=== PATIENT | male | born 1985 | race Two or more races ===

== ENCOUNTER 2019-01-01 14:04 | Emergency (ER) | payer SELFPAY ==
[~2019-01-01] VITALS: Ht 165.1 cm; Wt 81.6 kg
[2019-01-01 14:04] VITALS: BP 151/100
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
== END 2019-01-01 14:59 | disposition home or self-care (01) ==
LOC: ER 14:06
DX: S00.33XA Contusion of nose, initial encounter (principal); S09.8XXA Other specified injuries of head, initial encounter; V49.59XA Passenger injured in collision with other motor vehicles in traffic accident, initial encounter; Y93.89 Activity, other specified; Y92.410 Unspecified street and highway as the place of occurrence of the external cause; Y99.8 Other external cause status
CPT/HCPCS: Z7502

== ENCOUNTER 2023-01-05 00:08 | Inpatient (IN) | payer MEDICAID ==
[2023-01-04 20:00] VITALS: BP 147/102
[~2023-01-05] VITALS: Ht 157.5 cm; Wt 89.4 kg
[2023-01-05 02:04] LABS: BASOPHILS % (AUTO) 0.6 % (0.0-2.0); EOSINOPHILS % (AUTO) 1.9 % (0.0-6.0); HEMATOCRIT 41 % (39-51); HEMOGLOBIN 12.7 g/dL (13.5-17.5); LYMPHOCYTES # (AUTO) 1.9 K/uL (0.8-4.8); LYMPHOCYTES % (AUTO) 22.2 % (20.0-44.0); MEAN CORPUSCULAR HGB CONC 31 g/dl (31.0-36.0); MEAN CORPUSCULAR VOLUME 89 fL (80-96); MONOCYTES % (AUTO) 11.8 % (2.0-12.0); NEUTROPHILS # (AUTO) 5.4 K/uL (1.8-8.9); NEUTROPHILS % (AUTO) 63.5 % (43.0-81.0); PLATELET COUNT (AUTO) 306 K/uL (150-450); RED BLOOD CELL COUNT(AUTO) 4.54 MIL/uL (4.5-6.0); WHITE BLOOD COUNT (AUTO) 8.6 K/uL (4.3-11.0)
[2023-01-05 02:14] LABS: BILIRUBIN,URINE NEGATIVE (NEGATIVE); COLOR,URINE YELLOW (YELLOW); LEUKOCYTE ESTERASE ,URINE NEGATIVE (NEGATIVE); NITRITE, URINE NEGATIVE (NEGATIVE); PROTEIN,URINE TRACE mg/dl (NEGATIVE); UGLUCOSE NEGATIVE (NEGATIVE); UROBILINOGEN,URINE 0.2 EU/dL (0.2)
[2023-01-05 02:28] LABS: ALANINE AMINOTRANSFERASE 162 U/L (12-78); ALBUMIN 2.3 g/dL (3.4-5.0); ALKALINE PHOSPHATASE 89 U/L (46-116); ASPARTATE AMINOTRANSFERASE 85 U/L (15-37); BILIRUBIN,DIRECT 0.2 mg/dL (0.0-0.2); BILIRUBIN,TOTAL 0.4 mg/dL (0.2-1.0); CALCIUM, SERUM 8.1 mg/dL (8.5-10.1); CARBON DIOXIDE 26 mmol/L (21-32); CHLORIDE 110 mmol/L (98-107); GLUCOSE 95 mg/dL (74-106); LIPASE 374 U/L (73-393); POTASSIUM 4.2 mmol/L (3.5-5.1); SODIUM SERUM 139 mmol/L (136-145); TOTAL PROTEIN, SERUM 5.4 g/dL (6.4-8.2); UREA NITROGEN, BLOOD 19 mg/dL (7-18)
[2023-01-05] MEDS ORDERED: FUROSEMIDE 40 MG/4 ML VIAL IV ONE (04:00)
[2023-01-05] MEDS ORDERED: FUROSEMIDE 40 MG/4 ML VIAL ONE (04:02)
[2023-01-05] MEDS ORDERED: ONDANSETRON HCL/PF 4 MG/2 ML VIAL IVP PRN (05:30)
[2023-01-05] MEDS ORDERED: Z GUARD REMEDY 4 OZ OINT TP PRN (05:30)
[2023-01-05] MEDS ORDERED: MAG HYDROX/AL HYDROX/SIMETH 30 ML UDC PO PRN (05:30)
[2023-01-05] MEDS ORDERED: ACETAMINOPHEN 325 MG TABLET PO PRN (05:30)
[2023-01-05] MEDS ORDERED: ZOLPIDEM TARTRATE 5 MG TABLET PO PRN (05:30)
[2023-01-05] MEDS ORDERED: MAGNESIUM HYDROXIDE 30 ML UDC PO PRN (05:30)
[2023-01-05] MEDS: PANTOPRAZOLE 40 MG TABLET.DR PO SCH (07:44)
[2023-01-05 08:17] VITALS: BP 128/98
[2023-01-05] MEDS: ENOXAPARIN SODIUM 40 MG/0.4 ML DISP.SYRIN SQ SCH (08:22)
[2023-01-05] MEDS ORDERED: CHLO25CA10 PO (08:45)
[2023-01-05] MEDS ORDERED: FUROSEMIDE 40 MG/4 ML VIAL IV SCH (09:00)
[2023-01-05] MEDS: FUROSEMIDE 40 MG/4 ML VIAL IV SCH ×3 (10:53→18:08)
[2023-01-05] MEDS: CARVEDILOL 6.25 MG TABLET PO SCH ×2 (10:54→21:10)
[2023-01-05] MEDS: POTASSIUM CHLORIDE 20 MEQ TAB.PRT.SR PO SCH ×2 (10:54→12:10)
[2023-01-05 11:57] VITALS: BP 159/57
[2023-01-05 16:25] VITALS: BP 130/88
[2023-01-05] MEDS ORDERED: FUROSEMIDE 20 MG/2 ML VIAL IV SCH (17:00)
[2023-01-06] VITALS: BP 137/83
[2023-01-06 04:00] VITALS: BP 135/83
[2023-01-06] MEDS: PANTOPRAZOLE 40 MG TABLET.DR PO SCH (07:24)
[2023-01-06 07:45] LABS: BASOPHILS % (AUTO) 0.4 % (0.0-2.0); EOSINOPHILS % (AUTO) 2.1 % (0.0-6.0); HEMATOCRIT 44 % (39-51); HEMOGLOBIN 14.4 g/dL (13.5-17.5); LYMPHOCYTES # (AUTO) 1.6 K/uL (0.8-4.8); LYMPHOCYTES % (AUTO) 17.2 % (20.0-44.0); MEAN CORPUSCULAR HGB CONC 33 g/dl (31.0-36.0); MEAN CORPUSCULAR VOLUME 87 fL (80-96); MONOCYTES # (AUTO) 1.2 K/uL (0.1-1.30); MONOCYTES % (AUTO) 13.1 % (2.0-12.0); NEUTROPHILS # (AUTO) 6.2 K/uL (1.8-8.9); NEUTROPHILS % (AUTO) 67.2 % (43.0-81.0); PLATELET COUNT (AUTO) 373 K/uL (150-450); RED BLOOD CELL COUNT(AUTO) 5.08 MIL/uL (4.5-6.0); WHITE BLOOD COUNT (AUTO) 9.3 K/uL (4.3-11.0)
[2023-01-06 08:00] VITALS: BP 124/72
[2023-01-06 08:15] LABS: ALBUMIN 2.6 g/dL (3.4-5.0); BILIRUBIN,TOTAL 0.8 mg/dL (0.2-1.0); CALCIUM, SERUM 8.8 mg/dL (8.5-10.1); CREATININE 1.1 mg/dL (0.6-1.3); MAGNESIUM 1.8 mg/dL (1.8-2.4); PHOSPHORUS 5.5 mg/dL (2.5-4.9); POTASSIUM 3.5 mmol/L (3.5-5.1); TOTAL PROTEIN, SERUM 6.3 g/dL (6.4-8.2)
[2023-01-06] MEDS ORDERED: LIDOCAINE HCL/PF 1% 30 ML SDV ONE (08:42)
[2023-01-06] MEDS: SPIRONOLACTONE 25 MG TABLET PO SCH (08:59)
[2023-01-06] MEDS: CARVEDILOL 6.25 MG TABLET PO SCH (08:59)
[2023-01-06] MEDS: ENOXAPARIN SODIUM 40 MG/0.4 ML DISP.SYRIN SQ SCH (09:00)
[2023-01-06] MEDS: VALSARTAN 80 MG TABLET PO SCH (09:35)
[2023-01-06 12:00] VITALS: BP 125/87
[2023-01-06 16:00] VITALS: BP 135/94
[2023-01-06 20:00] VITALS: BP 134/82
[2023-01-06] MEDS ORDERED: CARVEDILOL 6.25 MG TABLET PO SCH (21:00)
[2023-01-07 07:13] LABS: BASOPHILS % (AUTO) 0.4 % (0.0-2.0); EOSINOPHILS % (AUTO) 2.1 % (0.0-6.0); HEMATOCRIT 42 % (39-51); HEMOGLOBIN 13.6 g/dL (13.5-17.5); LYMPHOCYTES # (AUTO) 1.6 K/uL (0.8-4.8); LYMPHOCYTES % (AUTO) 21.5 % (20.0-44.0); MEAN CORPUSCULAR HGB CONC 32 g/dl (31.0-36.0); MEAN CORPUSCULAR VOLUME 87 fL (80-96); MONOCYTES % (AUTO) 13.2 % (2.0-12.0); NEUTROPHILS # (AUTO) 4.6 K/uL (1.8-8.9); NEUTROPHILS % (AUTO) 62.8 % (43.0-81.0); PLATELET COUNT (AUTO) 350 K/uL (150-450); WHITE BLOOD COUNT (AUTO) 7.4 K/uL (4.3-11.0)
[2023-01-07 07:49] LABS: CALCIUM, SERUM 8.6 mg/dL (8.5-10.1); CREATININE 0.9 mg/dL (0.6-1.3); MAGNESIUM 1.8 mg/dL (1.8-2.4); PHOSPHORUS 4.2 mg/dL (2.5-4.9); POTASSIUM 4.1 mmol/L (3.5-5.1)
[2023-01-07 08:00] VITALS: BP 115/78
[2023-01-07] MEDS: PANTOPRAZOLE 40 MG TABLET.DR PO SCH (08:47)
[2023-01-07] MEDS: SPIRONOLACTONE 25 MG TABLET PO SCH (08:47)
[2023-01-07] MEDS: VALSARTAN 80 MG TABLET PO SCH (08:48)
[2023-01-07] MEDS: ENOXAPARIN SODIUM 40 MG/0.4 ML DISP.SYRIN SQ SCH (08:54)
[2023-01-07] MEDS ORDERED: CARVEDILOL 12.5 MG TABLET PO SCH (09:00)
[2023-01-07 12:00] VITALS: BP 118/75
[2023-01-07] MEDS ORDERED: SPIR25TA6 PO (14:53)
[2023-01-07] MEDS ORDERED: CARV12.52 PO (14:53)
[2023-01-07] MEDS ORDERED: VALS80TA31 PO (14:53)
[2023-01-07 16:00] VITALS: BP 134/80
== END 2023-01-07 18:15 | disposition left against medical advice (07) | DRG 194 ==
LOC: ER 00:10 → TELE 04:45
PROVIDERS: ADMIT Nurse Practitioner Acute Care; ATTEND Nurse Practitioner Acute Care
DX: I11.0 Hypertensive heart disease with heart failure (principal); I31.39 Other pericardial effusion (noninflammatory); E86.0 Dehydration; J90 Pleural effusion, not elsewhere classified; K70.30 Alcoholic cirrhosis of liver without ascites; I50.33 Acute on chronic diastolic (congestive) heart failure; Z20.822 Contact with and (suspected) exposure to COVID-19; Z87.891 Personal history of nicotine dependence; E66.9 Obesity, unspecified; R74.01 Elevation of levels of liver transaminase levels; F10.10 Alcohol abuse, uncomplicated; Z68.36 Body mass index [BMI] 36.0-36.9, adult; N50.89 Other specified disorders of the male genital organs
CPT/HCPCS: 36415; 71045-TC; 76705-TC; 76870-TC; 80048-TC; 80053-TC; 80076-TC; 82140-TC; 83690-TC; 83735-TC; 83880; 84100-TC; 84484-TC; 85025-TC; 85730-TC; 87081-TC; 93307-TC; C9803; G0378; J1650; J1940; J3490

== ENCOUNTER 2023-04-22 04:44 | Emergency (ER) | payer MEDICAID ==
[~2023-04-22] VITALS: Ht 165.1 cm; Wt 86.2 kg
[~2023-04-22 04:44] MED LIST: CARV12.52 PO; CHLO25CA10 PO; SPIR25TA6 PO; VALS80TA31 PO
--- NOTE | 2023-04-22 05:16 | NUR ---
BIBWIFE FROM HOME C/O URINARY RETENTION SINCE YESTERDAY 10AM. PREVIOUSLY TAKING FUROSEMIDE AND RAN OUT OF RX. PLACED IN BED, VITALS CHECKED.
--- NOTE | 2023-04-22 05:42 | NUR ---
16FR WARREN CATH INSERTED; PT TOLERATED WELL
--- NOTE | 2023-04-22 05:43 | NUR ---
URINE COLLECTED, SENT TO LAB
--- NOTE | 2023-04-22 06:13 | NUR ---
Sudarshan kapoor in [facility] - 04/22/23 at 0617 by [facility] CALLED FOR BLS GOING BACK TO SNF PER JOSE MATHEWS 67
[2023-04-22 06:27] LABS: BILIRUBIN,URINE 2+ (NEGATIVE); COLOR,URINE DARK YELLOW (YELLOW); LEUKOCYTE ESTERASE ,URINE NEGATIVE (NEGATIVE); NITRITE, URINE NEGATIVE (NEGATIVE); PROTEIN,URINE 2+ mg/dl (NEGATIVE); UGLUCOSE NEGATIVE (NEGATIVE)
[2023-04-22 06:31] LABS: BACTERIA,URINE Rare /HPF (None Seen); SQUAMOUS EPITHELIAL CELL,UR Few /HPF (None Seen); WBC,URINE 0-2 /HPF (0-3)
[2023-04-22 06:42] LABS: BASOPHILS % (AUTO) 0.4 % (0.0-2.0); EOSINOPHILS % (AUTO) 1.2 % (0.0-6.0); HEMATOCRIT 45 % (39-51); HEMOGLOBIN 14.2 g/dL (13.5-17.5); LYMPHOCYTES % (AUTO) 25.1 % (20.0-44.0); MEAN CORPUSCULAR HGB CONC 32 g/dl (31.0-36.0); MEAN CORPUSCULAR VOLUME 82 fL (80-96); MONOCYTES # (AUTO) 0.9 K/uL (0.1-1.30); MONOCYTES % (AUTO) 11.5 % (2.0-12.0); NEUTROPHILS % (AUTO) 61.8 % (43.0-81.0); PLATELET COUNT (AUTO) 305 K/uL (150-450); RED BLOOD CELL COUNT(AUTO) 5.47 MIL/uL (4.5-6.0); WHITE BLOOD COUNT (AUTO) 8.1 K/uL (4.3-11.0)
[2023-04-22 06:55] LABS: CALCIUM, SERUM 8.6 mg/dL (8.5-10.1); CREATININE 1.2 mg/dL (0.6-1.3); POTASSIUM 4.3 mmol/L (3.5-5.1)
[2023-04-22 07:00] LABS: ALBUMIN 2.8 g/dL (3.4-5.0); BILIRUBIN,TOTAL 1.5 mg/dL (0.2-1.0); TOTAL PROTEIN, SERUM 6.3 g/dL (6.4-8.2)
--- NOTE | 2023-04-22 07:47 | NUR ---
roy removed. patient was able to pee with slight discomfort
--- NOTE | 2023-04-22 08:19 | NUR ---
Patient discharged to home in stable condition, ambulating. Written and verbal after care instructions given. Patient verbalizes understanding of instruction.
[2023-04-22 08:20] VITALS: BP 122/71
[2023-04-22] MEDS ORDERED: FURO-144 PO (10:06)
[2023-04-22] MEDS ORDERED: LOSA25TA27 PO (10:06)
== END 2023-04-22 08:21 | disposition home or self-care (01) ==
LOC: ER 04:50
DX: R39.198 Other difficulties with micturition (principal); Z79.899 Other long term (current) drug therapy
CPT/HCPCS: 36415; 80053-TC; 81001; 85025-TC

== ENCOUNTER 2023-05-30 05:56 | Emergency (ER) | payer MEDICAID ==
[~2023-05-30] VITALS: Ht 162.6 cm; Wt 81.6 kg
[~2023-05-30 05:56] MED LIST changes: +FURO-144 PO; +LOSA25TA27 PO
--- NOTE | 2023-05-30 06:10 | NUR ---
URINE COLLECTED AND SENT TO LAB
--- NOTE | 2023-05-30 06:25 | NUR ---
18GA LEFT AC ESTABLISHED; BLOOD WORK COLLECTED, SENT TO LAB
[2023-05-30] MEDS ORDERED: ONDANSETRON HCL/PF 4 MG/2 ML VIAL IVP ONE (06:30)
[2023-05-30] MEDS ORDERED: ONDANSETRON HCL/PF 4 MG/2 ML VIAL ONE (06:30)
[2023-05-30 06:40] LABS: BASOPHILS # (AUTO) 0.1 K/uL (0.0-0.2); HEMATOCRIT 44 % (39-51); HEMOGLOBIN 14.4 g/dL (13.5-17.5); LYMPHOCYTES # (AUTO) 2.5 K/uL (0.8-4.8); LYMPHOCYTES % (AUTO) 25.1 % (20.0-44.0); MEAN CORPUSCULAR HGB CONC 32 g/dl (31.0-36.0); MEAN CORPUSCULAR VOLUME 81 fL (80-96); MONOCYTES # (AUTO) 1.2 K/uL (0.1-1.30); MONOCYTES % (AUTO) 12.5 % (2.0-12.0); NEUTROPHILS % (AUTO) 60.4 % (43.0-81.0); PLATELET COUNT (AUTO) 318 K/uL (150-450); RED BLOOD CELL COUNT(AUTO) 5.45 MIL/uL (4.5-6.0)
--- NOTE | 2023-05-30 06:42 | NUR ---
PATIENT ACCOUNTS MANAGER AT PT'S BEDSIDE
[2023-05-30 06:45] LABS: BILIRUBIN,URINE 1+ (NEGATIVE); COLOR,URINE DARK YELLOW (YELLOW); LEUKOCYTE ESTERASE ,URINE NEGATIVE (NEGATIVE); NITRITE, URINE NEGATIVE (NEGATIVE); PROTEIN,URINE 3+ mg/dl (NEGATIVE); UGLUCOSE NEGATIVE (NEGATIVE)
[2023-05-30 06:47] LABS: BACTERIA,URINE Rare /HPF (None Seen); SQUAMOUS EPITHELIAL CELL,UR Few /HPF (None Seen); WBC,URINE 0-2 /HPF (0-3)
--- NOTE | 2023-05-30 06:53 | NUR ---
PT BACK FROM CT
[2023-05-30 06:59] LABS: ALBUMIN 2.8 g/dL (3.4-5.0); BILIRUBIN,DIRECT 0.6 mg/dL (0.0-0.2); BILIRUBIN,TOTAL 1.4 mg/dL (0.2-1.0); CALCIUM, SERUM 8.8 mg/dL (8.5-10.1); CREATININE 1.1 mg/dL (0.6-1.3); TOTAL PROTEIN, SERUM 6.7 g/dL (6.4-8.2)
[2023-05-30] MEDS ORDERED: ONDA4TAB5 PO (07:47)
[2023-05-30] MEDS ORDERED: AMOX-430 PO (07:47)
[2023-05-30] MEDS ORDERED: PANT40TA2 PO (07:47)
--- NOTE | 2023-05-30 11:35 | NUR ---
Patient discharged to home in stable condition. Written and verbal after care instructions given. Patient verbalizes understanding of instruction.IV removed. Catheter intact and site benign. Pressure and 4x4 applied to site. No bleeding noted.
[2023-05-30 11:36] VITALS: BP 136/76; TEMP 97.7; O2SAT 98
== END 2023-05-30 11:36 | disposition home or self-care (01) ==
LOC: ER 05:56
DX: K29.80 Duodenitis without bleeding (principal); R11.2 Nausea with vomiting, unspecified; I11.0 Hypertensive heart disease with heart failure; I50.9 Heart failure, unspecified
CPT/HCPCS: 99285; 74176; 96374; 71045; 93005; 82140; 85025; 80048; 83690; 80076; 81001; 36415; J2405

== ENCOUNTER 2023-06-21 06:37 | Emergency (ER) | payer MEDICAID ==
[~2023-06-21] VITALS: Ht 167.6 cm; Wt 83.9 kg
[~2023-06-21 06:37] MED LIST changes: +AMOX-430 PO; +ONDA4TAB5 PO; +PANT40TA2 PO
[2023-06-21 07:42] LABS: BASOPHILS # (AUTO) 0.1 K/uL (0.0-0.2); BASOPHILS % (AUTO) 1.3 % (0.0-2.0); EOSINOPHILS # (AUTO) 0.1 K/uL (0.0-0.7); EOSINOPHILS % (AUTO) 1.4 % (0.0-6.0); HEMATOCRIT 43 % (39-51); HEMOGLOBIN 13.7 g/dL (13.5-17.5); LYMPHOCYTES # (AUTO) 2.3 K/uL (0.8-4.8); LYMPHOCYTES % (AUTO) 26.4 % (20.0-44.0); MEAN CORPUSCULAR HEMOGLOBIN 26 PG (26.0-33.0); MEAN CORPUSCULAR HGB CONC 32 g/dl (31.0-36.0); MEAN CORPUSCULAR VOLUME 80 fL (80-96); MONOCYTES # (AUTO) 1.1 K/uL (0.1-1.30); MONOCYTES % (AUTO) 12.4 % (2.0-12.0); NEUTROPHILS % (AUTO) 58.5 % (43.0-81.0); PLATELET COUNT (AUTO) 366 K/uL (150-450); RED BLOOD CELL COUNT(AUTO) 5.37 MIL/uL (4.5-6.0); RED CELL DISTRIBUTION WIDTH 20.5 % (11.5-15.0); WHITE BLOOD COUNT (AUTO) 8.5 K/uL (4.3-11.0)
[2023-06-21 07:51] LABS: CALCIUM, SERUM 8.7 mg/dL (8.5-10.1); CARBON DIOXIDE 24 mmol/L (21-32); CHLORIDE 103 mmol/L (98-107); CREATININE 0.9 mg/dL (0.6-1.3); GLUCOSE 107 mg/dL (74-106); POTASSIUM 4.2 mmol/L (3.5-5.1); SODIUM SERUM 136 mmol/L (136-145); UREA NITROGEN, BLOOD 20 mg/dL (7-18)
[2023-06-21 08:03] LABS: ALANINE AMINOTRANSFERASE 35 U/L (12-78); ALBUMIN 2.7 g/dL (3.4-5.0); ALKALINE PHOSPHATASE 116 U/L (46-116); ASPARTATE AMINOTRANSFERASE 31 U/L (15-37); BILIRUBIN,DIRECT 0.5 mg/dL (0.0-0.2); BILIRUBIN,TOTAL 1.2 mg/dL (0.2-1.0); NT-PRO BNP 4010 pg/mL (0-125); TOTAL PROTEIN, SERUM 6.6 g/dL (6.4-8.2)
[2023-06-21] MEDS ORDERED: FUROSEMIDE 40 MG/4 ML VIAL IV ONE (08:30)
[2023-06-21] MEDS ORDERED: FUROSEMIDE 40 MG/4 ML VIAL ONE (08:51)
[2023-06-21] MEDS ORDERED: FURO40TA5 PO (09:20)
[2023-06-21 10:43] VITALS: BP 128/80; TEMP 98; O2SAT 97
== END 2023-06-21 10:44 | disposition home or self-care (01) ==
LOC: ER 06:38
DX: I11.0 Hypertensive heart disease with heart failure (principal); I50.9 Heart failure, unspecified; R06.02 Shortness of breath; Z79.899 Other long term (current) drug therapy; Z20.822 Contact with and (suspected) exposure to COVID-19
CPT/HCPCS: 99285; 96374; 71045; 87426; 93005; 85025; 80048; 80076; 36415; 84484 ×2; 83880; J1940; C9803

== ENCOUNTER 2023-06-28 17:55 | Inpatient (IN) | payer MEDICAID ==
[~2023-06-28] VITALS: Ht 160 cm; Wt 83.0 kg
[~2023-06-28 17:55] MED LIST changes: +FURO40TA5 PO
[2023-06-28] MEDS ORDERED: ASPI-1169 PO (18:35)
[2023-06-28] MEDS ORDERED: LOSA25TA27 PO (18:35)
[2023-06-28] MEDS ORDERED: FURO-144 PO (18:35)
[2023-06-28 18:44] LABS: BASOPHILS # (AUTO) 0.1 K/uL (0.0-0.2); EOSINOPHILS # (AUTO) 0.2 K/uL (0.0-0.7); EOSINOPHILS % (AUTO) 2.3 % (0.0-6.0); HEMATOCRIT 42 % (39-51); HEMOGLOBIN 12.9 g/dL (13.5-17.5); LYMPHOCYTES % (AUTO) 24.5 % (20.0-44.0); MEAN CORPUSCULAR HEMOGLOBIN 25 PG (26.0-33.0); MEAN CORPUSCULAR HGB CONC 31 g/dl (31.0-36.0); MEAN CORPUSCULAR VOLUME 80 fL (80-96); MONOCYTES # (AUTO) 1.2 K/uL (0.1-1.30); MONOCYTES % (AUTO) 14.7 % (2.0-12.0); NEUTROPHILS # (AUTO) 4.7 K/uL (1.8-8.9); NEUTROPHILS % (AUTO) 57.5 % (43.0-81.0); PLATELET COUNT (AUTO) 293 K/uL (150-450); RED CELL DISTRIBUTION WIDTH 20.2 % (11.5-15.0); WHITE BLOOD COUNT (AUTO) 8.2 K/uL (4.3-11.0)
[2023-06-28 18:50] LABS: CALCIUM, SERUM 8.2 mg/dL (8.5-10.1); CARBON DIOXIDE 28 mmol/L (21-32); CHLORIDE 103 mmol/L (98-107); GLUCOSE 118 mg/dL (74-106); POTASSIUM 4.1 mmol/L (3.5-5.1); SODIUM SERUM 137 mmol/L (136-145); UREA NITROGEN, BLOOD 17 mg/dL (7-18)
[2023-06-28] MEDS ORDERED: FUROSEMIDE 40 MG/4 ML VIAL IV ONE (19:00)
[2023-06-28] MEDS ORDERED: FUROSEMIDE 40 MG/4 ML VIAL ONE (19:01)
[2023-06-28 19:03] LABS: ALANINE AMINOTRANSFERASE 34 U/L (12-78); ALBUMIN 2.5 g/dL (3.4-5.0); ALKALINE PHOSPHATASE 126 U/L (46-116); ASPARTATE AMINOTRANSFERASE 33 U/L (15-37); BILIRUBIN,DIRECT 0.7 mg/dL (0.0-0.2); BILIRUBIN,TOTAL 1.2 mg/dL (0.2-1.0); NT-PRO BNP 4243 pg/mL (0-125); TOTAL PROTEIN, SERUM 6.3 g/dL (6.4-8.2)
[2023-06-28] MEDS ORDERED: ZOLPIDEM TARTRATE 5 MG TABLET PO PRN (21:00)
[2023-06-28] MEDS ORDERED: MAG HYDROX/AL HYDROX/SIMETH 30 ML UDC PO PRN (21:00)
[2023-06-28] MEDS ORDERED: ONDANSETRON HCL/PF 4 MG/2 ML VIAL IVP PRN (21:00)
[2023-06-28] MEDS ORDERED: ACETAMINOPHEN 325 MG TABLET PO PRN (21:00)
[2023-06-28] MEDS ORDERED: MAGNESIUM HYDROXIDE 30 ML UDC PO PRN (21:00)
[2023-06-28] MEDS ORDERED: Z GUARD REMEDY 4 OZ OINT TP PRN (21:00)
[2023-06-28 21:40] VITALS: BP 138/82; TEMP 98.1; O2SAT 98
[2023-06-28 22:00] VITALS: BP 138/82; TEMP 98.1; O2SAT 98
[2023-06-28] MEDS: ENOXAPARIN SODIUM 40 MG/0.4 ML DISP.SYRIN SQ SCH (22:13)
[2023-06-29] VITALS (7 sets, daily range): BP systolic 110–125; BP diastolic 75–91; TEMP 98–103; O2SAT 94–99
[2023-06-29 06:40] LABS: BASOPHILS # (AUTO) 0.1 K/uL (0.0-0.2); BASOPHILS % (AUTO) 0.8 % (0.0-2.0); EOSINOPHILS # (AUTO) 0.2 K/uL (0.0-0.7); EOSINOPHILS % (AUTO) 1.8 % (0.0-6.0); HEMATOCRIT 43 % (39-51); HEMOGLOBIN 13.6 g/dL (13.5-17.5); LYMPHOCYTES # (AUTO) 2.4 K/uL (0.8-4.8); LYMPHOCYTES % (AUTO) 27.9 % (20.0-44.0); MEAN CORPUSCULAR HEMOGLOBIN 25 PG (26.0-33.0); MEAN CORPUSCULAR HGB CONC 32 g/dl (31.0-36.0); MEAN CORPUSCULAR VOLUME 80 fL (80-96); MONOCYTES % (AUTO) 11.5 % (2.0-12.0); PLATELET COUNT (AUTO) 307 K/uL (150-450); RED BLOOD CELL COUNT(AUTO) 5.37 MIL/uL (4.5-6.0); RED CELL DISTRIBUTION WIDTH 20.6 % (11.5-15.0); WHITE BLOOD COUNT (AUTO) 8.6 K/uL (4.3-11.0)
[2023-06-29 07:29] LABS: CALCIUM, SERUM 8.8 mg/dL (8.5-10.1); CREATININE 1.1 mg/dL (0.6-1.3); MAGNESIUM 1.8 mg/dL (1.8-2.4); PHOSPHORUS 4.1 mg/dL (2.5-4.9); POTASSIUM 4.3 mmol/L (3.5-5.1)
[2023-06-29 07:51] LABS: THYROID STIMULATING HORMONE 1.37 uIU/mL (0.358-3.74)
[2023-06-29] MEDS: ASPIRIN 81 MG TAB.CHEW PO SCH (08:20)
[2023-06-29] MEDS: PANTOPRAZOLE 40 MG TABLET.DR PO SCH (08:20)
[2023-06-29] MEDS: LOSARTAN POTASSIUM 25 MG TABLET PO SCH (08:20)
[2023-06-29] MEDS: FUROSEMIDE 40 MG/4 ML VIAL IV SCH (08:20)
[2023-06-29] MEDS: ENOXAPARIN SODIUM 40 MG/0.4 ML DISP.SYRIN SQ SCH (21:11)
[2023-06-30] VITALS: BP 123/87; TEMP 97.4; O2SAT 97
[2023-06-30 04:00] VITALS: BP_SYST 125; BP_SYST 133; BP_DIAS 68; BP_DIAS 87; TEMP 98; TEMP 98.6; O2SAT 96; O2SAT 97
[2023-06-30 06:57] LABS: BASOPHILS # (AUTO) 0.1 K/uL (0.0-0.2); BASOPHILS % (AUTO) 1.1 % (0.0-2.0); EOSINOPHILS # (AUTO) 0.1 K/uL (0.0-0.7); EOSINOPHILS % (AUTO) 2.1 % (0.0-6.0); HEMATOCRIT 42 % (39-51); LYMPHOCYTES # (AUTO) 1.9 K/uL (0.8-4.8); LYMPHOCYTES % (AUTO) 27.8 % (20.0-44.0); MEAN CORPUSCULAR HEMOGLOBIN 25 PG (26.0-33.0); MEAN CORPUSCULAR HGB CONC 31 g/dl (31.0-36.0); MEAN CORPUSCULAR VOLUME 80 fL (80-96); MONOCYTES # (AUTO) 0.9 K/uL (0.1-1.30); NEUTROPHILS # (AUTO) 3.9 K/uL (1.8-8.9); PLATELET COUNT (AUTO) 308 K/uL (150-450); RED BLOOD CELL COUNT(AUTO) 5.21 MIL/uL (4.5-6.0); RED CELL DISTRIBUTION WIDTH 20.5 % (11.5-15.0); WHITE BLOOD COUNT (AUTO) 6.9 K/uL (4.3-11.0)
[2023-06-30 07:18] LABS: CALCIUM, SERUM 8.5 mg/dL (8.5-10.1); CREATININE 0.9 mg/dL (0.6-1.3); POTASSIUM 3.6 mmol/L (3.5-5.1)
[2023-06-30 08:00] VITALS: BP 126/82; TEMP 97.9; O2SAT 96
[2023-06-30] MEDS: ASPIRIN 81 MG TAB.CHEW PO SCH (09:36)
[2023-06-30] MEDS: LOSARTAN POTASSIUM 25 MG TABLET PO SCH (09:36)
[2023-06-30] MEDS: FUROSEMIDE 40 MG/4 ML VIAL IV SCH ×2 (09:37→20:00)
[2023-06-30] MEDS: PANTOPRAZOLE 40 MG TABLET.DR PO SCH (09:37)
[2023-06-30 11:35] VITALS: BP 114/80; TEMP 97.8; O2SAT 96
[2023-06-30 16:00] VITALS: BP 120/82; TEMP 98.9; O2SAT 96
[2023-06-30 20:00] VITALS: BP 123/83; TEMP 98.7; O2SAT 98
[2023-06-30] MEDS: SPIRONOLACTONE 25 MG TABLET PO SCH (20:00)
[2023-06-30] MEDS: METOPROLOL TARTRATE 25 MG TABLET PO SCH (20:01)
[2023-06-30] MEDS: ENOXAPARIN SODIUM 40 MG/0.4 ML DISP.SYRIN SQ SCH (21:44)
[2023-07-01] VITALS: BP 114/78; TEMP 97.8; O2SAT 95
[2023-07-01 04:00] VITALS: BP 125/82; TEMP 97.7; O2SAT 95
[2023-07-01 08:00] VITALS: BP 128/84; TEMP 98.6; O2SAT 95
[2023-07-01] MEDS: ASPIRIN 81 MG TAB.CHEW PO SCH (09:40)
[2023-07-01] MEDS: SPIRONOLACTONE 25 MG TABLET PO SCH (09:40)
[2023-07-01 09:41] VITALS: BP 128/84
[2023-07-01] MEDS: METOPROLOL TARTRATE 25 MG TABLET PO SCH (09:41)
[2023-07-01] MEDS: LOSARTAN POTASSIUM 25 MG TABLET PO SCH (09:41)
[2023-07-01] MEDS: FUROSEMIDE 40 MG/4 ML VIAL IV SCH (09:42)
[2023-07-01] MEDS: PANTOPRAZOLE 40 MG TABLET.DR PO SCH (09:43)
[2023-07-01] MEDS ORDERED: METO25TA20 PO (09:50)
[2023-07-01] MEDS ORDERED: FURO-144 PO (09:50)
[2023-07-01] MEDS ORDERED: SPIR25TA6 PO (09:50)
== END 2023-07-01 13:47 | disposition home or self-care (01) | DRG 194 ==
LOC: ER 17:58 → TELE 21:15
PROVIDERS: ADMIT Student in an Organized Health Care Education/Training Program; ATTEND Internal Medicine
DX: I11.0 Hypertensive heart disease with heart failure (principal); E44.0 Moderate protein-calorie malnutrition; K74.60 Unspecified cirrhosis of liver; I42.8 Other cardiomyopathies; I50.23 Acute on chronic systolic (congestive) heart failure; D64.9 Anemia, unspecified; K42.9 Umbilical hernia without obstruction or gangrene; Z91.199 Patient's noncompliance with other medical treatment and regimen due to unspecified reason; Z68.32 Body mass index [BMI] 32.0-32.9, adult; F10.21 Alcohol dependence, in remission
CPT/HCPCS: 36415; 71045-TC; 80048-TC; 80076-TC; 83735-TC; 83880; 84100-TC; 84443-TC; 84484-TC; 85025-TC; 93307-TC; 93970-TC; G0378; J1650; J1940

== ENCOUNTER 2024-01-15 05:25 | Inpatient (IN) | payer MEDICAID, OTHER ==
[~2024-01-15] VITALS: Ht 149.9 cm; Wt 82.1 kg
[~2024-01-15 05:25] MED LIST changes: -AMOX-430 PO; +ASPI-1169 PO; -CARV12.52 PO; -CHLO25CA10 PO; -FURO40TA5 PO; +METO25TA20 PO; -ONDA4TAB5 PO; -PANT40TA2 PO; -VALS80TA31 PO
[2024-01-15] MEDS ORDERED: FUROSEMIDE 40 MG/4 ML VIAL ONE (06:08)
[2024-01-15] MEDS: FUROSEMIDE 40 MG/4 ML VIAL IV ONE (06:12)
[2024-01-15 06:38] LABS: BASOPHILS # (AUTO) 0.2 K/uL (0.0-0.2); BASOPHILS % (AUTO) 2.5 % (0.0-2.0); EOSINOPHILS # (AUTO) 0.1 K/uL (0.0-0.7); EOSINOPHILS % (AUTO) 0.9 % (0.0-6.0); HEMATOCRIT 44 % (39-51); HEMOGLOBIN 13.8 g/dL (13.5-17.5); LYMPHOCYTES # (AUTO) 1.5 K/uL (0.8-4.8); LYMPHOCYTES % (AUTO) 16.3 % (20.0-44.0); MEAN CORPUSCULAR HEMOGLOBIN 25 PG (26.0-33.0); MEAN CORPUSCULAR HGB CONC 31 g/dl (31.0-36.0); MEAN CORPUSCULAR VOLUME 79 fL (80-96); MONOCYTES # (AUTO) 0.6 K/uL (0.1-1.30); MONOCYTES % (AUTO) 6.4 % (2.0-12.0); NEUTROPHILS # (AUTO) 6.6 K/uL (1.8-8.9); NEUTROPHILS % (AUTO) 73.9 % (43.0-81.0); PLATELET COUNT (AUTO) 340 K/uL (150-450); RED BLOOD CELL COUNT(AUTO) 5.62 MIL/uL (4.5-6.0); RED CELL DISTRIBUTION WIDTH 21.5 % (11.5-15.0)
[2024-01-15 06:43] LABS: CALCIUM, SERUM 8.4 mg/dL (8.5-10.1); CARBON DIOXIDE 25 mmol/L (21-32); CHLORIDE 96 mmol/L (98-107); CREATININE 1.3 mg/dL (0.6-1.3); GLUCOSE 143 mg/dL (74-106); POTASSIUM 3.8 mmol/L (3.5-5.1); SODIUM SERUM 132 mmol/L (136-145); UREA NITROGEN, BLOOD 39 mg/dL (7-18)
[2024-01-15 06:55] LABS: ALANINE AMINOTRANSFERASE 48 U/L (12-78); ALKALINE PHOSPHATASE 143 U/L (46-116); ASPARTATE AMINOTRANSFERASE 51 U/L (15-37); BILIRUBIN,DIRECT 1.7 mg/dL (0.0-0.2); BILIRUBIN,TOTAL 2.4 mg/dL (0.2-1.0); NT-PRO BNP 7681 pg/mL (0-125); TOTAL PROTEIN, SERUM 6.3 g/dL (6.4-8.2)
[2024-01-15] MEDS ORDERED: ASPIRIN 325 MG TABLET ONE (07:56)
[2024-01-15] MEDS: ASPIRIN 325 MG TABLET PO ONE (08:03)
[2024-01-15] MEDS ORDERED: FURO-144 PO (08:20)
[2024-01-15] MEDS ORDERED: SPIR25TA6 PO (08:20)
[2024-01-15] MEDS ORDERED: POTA-88 PO (08:20)
[2024-01-15] MEDS ORDERED: ENOXAPARIN SODIUM 40 MG/0.4 ML DISP.SYRIN SQ SCH (09:30)
[2024-01-15] MEDS ORDERED: MAGNESIUM HYDROXIDE 30 ML UDC PO PRN (09:30)
[2024-01-15] MEDS ORDERED: Z GUARD REMEDY 4 OZ OINT TP PRN (09:30)
[2024-01-15 12:00] VITALS: BP 112/81; TEMP 97.9; O2SAT 98
[2024-01-15] MEDS: ACETAMINOPHEN 325 MG TABLET PO PRN (12:10)
[2024-01-15] MEDS: POTASSIUM CHLORIDE 20 MEQ TAB.PRT.SR PO SCH (12:11)
[2024-01-15] MEDS: FUROSEMIDE 40 MG/4 ML VIAL IV SCH (12:27)
[2024-01-15] MEDS: ENOXAPARIN SODIUM 100 MG/ML DISP.SYRIN SQ SCH (13:38)
[2024-01-15] MEDS ORDERED: CEFTRIAXONE 1 G in IV D5W 50 ML IV SCH (15:30)
[2024-01-15 16:00] VITALS: BP 117/91; TEMP 97.9; O2SAT 96
[2024-01-15] MEDS: CEFTRIAXONE 1 G in IV D5W 50 ML IV SCH (17:00)
[2024-01-15 20:00] VITALS: BP 108/87; TEMP 98.4; O2SAT 98
[2024-01-16] VITALS: BP 122/90; TEMP 98.4; O2SAT 98
[2024-01-16 04:00] VITALS: BP 114/82; TEMP 98; O2SAT 99
[2024-01-16 07:22] LABS: BASOPHILS # (AUTO) 0.1 K/uL (0.0-0.2); BASOPHILS % (AUTO) 0.8 % (0.0-2.0); EOSINOPHILS # (AUTO) 0.1 K/uL (0.0-0.7); EOSINOPHILS % (AUTO) 0.9 % (0.0-6.0); HEMATOCRIT 44 % (39-51); LYMPHOCYTES % (AUTO) 23.2 % (20.0-44.0); MEAN CORPUSCULAR HEMOGLOBIN 25 PG (26.0-33.0); MEAN CORPUSCULAR HGB CONC 32 g/dl (31.0-36.0); MEAN CORPUSCULAR VOLUME 77 fL (80-96); MONOCYTES # (AUTO) 0.9 K/uL (0.1-1.30); MONOCYTES % (AUTO) 10.6 % (2.0-12.0); NEUTROPHILS # (AUTO) 5.5 K/uL (1.8-8.9); NEUTROPHILS % (AUTO) 64.5 % (43.0-81.0); PLATELET COUNT (AUTO) 355 K/uL (150-450); RED BLOOD CELL COUNT(AUTO) 5.69 MIL/uL (4.5-6.0); WHITE BLOOD COUNT (AUTO) 8.5 K/uL (4.3-11.0)
[2024-01-16 07:30] VITALS: BP 114/80; TEMP 97.3; O2SAT 99
[2024-01-16] MEDS: PANTOPRAZOLE 40 MG TABLET.DR PO SCH (07:30)
[2024-01-16 08:00] LABS: ALBUMIN 2.1 g/dL (3.4-5.0); BILIRUBIN,DIRECT 1.8 mg/dL (0.0-0.2); BILIRUBIN,TOTAL 2.6 mg/dL (0.2-1.0); CALCIUM, SERUM 8.5 mg/dL (8.5-10.1); CREATININE 1.1 mg/dL (0.6-1.3); PHOSPHORUS 3.6 mg/dL (2.5-4.9); POTASSIUM 3.5 mmol/L (3.5-5.1)
[2024-01-16] MEDS ORDERED: FUROSEMIDE 40 MG/4 ML VIAL IV SCH (09:00)
[2024-01-16] MEDS: FUROSEMIDE 100 MG/10 ML VIAL IV SCH (09:19)
[2024-01-16] MEDS: ASPIRIN 81 MG TAB.CHEW PO SCH (09:19)
[2024-01-16] MEDS: SPIRONOLACTONE 25 MG TABLET PO SCH (09:19)
[2024-01-16] MEDS: POTASSIUM CHLORIDE 20 MEQ TAB.PRT.SR PO SCH (09:19)
[2024-01-16] MEDS: CARVEDILOL 6.25 MG TABLET PO SCH (09:19)
[2024-01-16 10:10] LABS: THYROID STIMULATING HORMONE 1.255 uIU/mL (0.358-3.74)
[2024-01-16] MEDS ORDERED: DEXTROSE 50%-WATER 50 ML DISP.SYRIN IV PRN (12:30)
[2024-01-16] MEDS: MIDODRINE HCL (5MG) 5 MG TABLET PO SCH (13:36)
[2024-01-16 13:42] LABS: THYROID STIMULATING HORMONE 1.4 uIU/mL (0.358-3.74)
[2024-01-16 16:00] VITALS: BP 94/79; TEMP 97.9; O2SAT 100
[2024-01-16] MEDS: BLOOD SUGAR DIAGNOSTIC 1 EACH STRIP IN SCH (16:45)
[2024-01-16] MEDS: INSULIN REGULAR, HUMAN 100 UNIT/ML 3 ML VIAL SQ PRN (16:45)
[2024-01-16 20:00] VITALS: BP 92/73; TEMP 97.7; O2SAT 100
[2024-01-16 20:23] VITALS: BP_SYST 92; BP_SYST 96; BP_DIAS 43; BP_DIAS 73; TEMP 94.3; TEMP 97.7; O2SAT 100
[2024-01-16] MEDS: MAG HYDROX/AL HYDROX/SIMETH 30 ML UDC PO PRN (22:02)
[2024-01-17] VITALS (8 sets, daily range): BP systolic 97–113; BP diastolic 75–93; TEMP 97.3–98.1; O2SAT 100
[2024-01-17 07:01] LABS: BASOPHILS % (AUTO) 0.5 % (0.0-2.0); EOSINOPHILS % (AUTO) 0.5 % (0.0-6.0); HEMATOCRIT 43 % (39-51); HEMOGLOBIN 13.4 g/dL (13.5-17.5); LYMPHOCYTES # (AUTO) 1.7 K/uL (0.8-4.8); LYMPHOCYTES % (AUTO) 21.3 % (20.0-44.0); MEAN CORPUSCULAR HEMOGLOBIN 25 PG (26.0-33.0); MEAN CORPUSCULAR HGB CONC 31 g/dl (31.0-36.0); MEAN CORPUSCULAR VOLUME 78 fL (80-96); MONOCYTES # (AUTO) 0.8 K/uL (0.1-1.30); MONOCYTES % (AUTO) 10.3 % (2.0-12.0); NEUTROPHILS # (AUTO) 5.5 K/uL (1.8-8.9); NEUTROPHILS % (AUTO) 67.4 % (43.0-81.0); PLATELET COUNT (AUTO) 337 K/uL (150-450); RED BLOOD CELL COUNT(AUTO) 5.48 MIL/uL (4.5-6.0); WHITE BLOOD COUNT (AUTO) 8.2 K/uL (4.3-11.0)
[2024-01-17 07:30] LABS: ALBUMIN 1.9 g/dL (3.4-5.0); CALCIUM, SERUM 8.5 mg/dL (8.5-10.1); CREATININE 1.4 mg/dL (0.6-1.3); MAGNESIUM 2.3 mg/dL (1.8-2.4); PHOSPHORUS 3.8 mg/dL (2.5-4.9); POTASSIUM 4.1 mmol/L (3.5-5.1); TOTAL PROTEIN, SERUM 6.4 g/dL (6.4-8.2)
[2024-01-17] MEDS: FUROSEMIDE 100 MG/10 ML VIAL IV SCH (10:03)
[2024-01-18] VITALS: BP 104/82; TEMP 98; O2SAT 100
[2024-01-18 04:00] VITALS: BP 110/82; TEMP 98; O2SAT 100
[2024-01-18 06:57] LABS: BASOPHILS # (AUTO) 0.1 K/uL (0.0-0.2); BASOPHILS % (AUTO) 0.7 % (0.0-2.0); EOSINOPHILS % (AUTO) 0.6 % (0.0-6.0); HEMATOCRIT 42 % (39-51); LYMPHOCYTES # (AUTO) 1.5 K/uL (0.8-4.8); LYMPHOCYTES % (AUTO) 19.1 % (20.0-44.0); MEAN CORPUSCULAR HEMOGLOBIN 24 PG (26.0-33.0); MEAN CORPUSCULAR HGB CONC 31 g/dl (31.0-36.0); MEAN CORPUSCULAR VOLUME 78 fL (80-96); MONOCYTES # (AUTO) 0.8 K/uL (0.1-1.30); NEUTROPHILS # (AUTO) 5.2 K/uL (1.8-8.9); NEUTROPHILS % (AUTO) 68.6 % (43.0-81.0); PLATELET COUNT (AUTO) 299 K/uL (150-450); RED BLOOD CELL COUNT(AUTO) 5.33 MIL/uL (4.5-6.0); RED CELL DISTRIBUTION WIDTH 22.1 % (11.5-15.0); WHITE BLOOD COUNT (AUTO) 7.6 K/uL (4.3-11.0)
[2024-01-18 07:02] LABS: ALBUMIN 1.7 g/dL (3.4-5.0); BILIRUBIN,TOTAL 2.5 mg/dL (0.2-1.0); CALCIUM, SERUM 8.1 mg/dL (8.5-10.1); CREATININE 1.4 mg/dL (0.6-1.3); MAGNESIUM 2.1 mg/dL (1.8-2.4); PHOSPHORUS 3.8 mg/dL (2.5-4.9); TOTAL PROTEIN, SERUM 6.1 g/dL (6.4-8.2)
[2024-01-18 07:11] LABS: APPEARANCE,URINE CLEAR (CLEAR); BILIRUBIN,URINE NEGATIVE (NEGATIVE); BLOOD, URINE NEGATIVE Ery/uL (NEGATIVE); COLOR,URINE YELLOW (YELLOW); KETONES,URINE NEGATIVE (NEGATIVE); LEUKOCYTE ESTERASE ,URINE NEGATIVE (NEGATIVE); NITRITE, URINE NEGATIVE (NEGATIVE); PH,URINE 5.5 (5.0-8.0); PROTEIN,URINE NEGATIVE (NEGATIVE); UGLUCOSE NEGATIVE (NEGATIVE)
[2024-01-18 07:30] VITALS: BP 106/83; TEMP 97.5; O2SAT 98
[2024-01-18 07:36] LABS: THYROID STIMULATING HORMONE 2.508 uIU/mL (0.358-3.74); URIC ACID 14.3 mg/dL (2.6-7.2)
[2024-01-18 07:42] LABS: CREATININE, URINE 36.2 MG/DL (30.0-125.0); URINE TOTAL PROTEIN 13.9 mg/dL (0-11.9)
[2024-01-18 08:10] LABS: EOSINOPHIL,URINE None Seen
[2024-01-18 12:00] VITALS: BP 106/84; TEMP 97.3; O2SAT 100
[2024-01-18 16:00] VITALS: BP 94/79; TEMP 97.8; O2SAT 100
[2024-01-18 20:00] VITALS: BP 115/86; TEMP 97.1; TEMP 97.3; O2SAT 100
[2024-01-18] MEDS: ZOLPIDEM TARTRATE 5 MG TABLET PO PRN (21:53)
[2024-01-19] VITALS: BP 108/88; TEMP 97.5; O2SAT 100
[2024-01-19 04:00] VITALS: BP_SYST 106; BP_SYST 108; BP_DIAS 80; BP_DIAS 88; TEMP 97.5; TEMP 97.7; O2SAT 100
[2024-01-19 04:35] VITALS: O2SAT 100
[2024-01-19] MEDS ORDERED: LIDOCAINE HCL/MPF 1% 30 ML VIAL IJ ONE (06:31)
[2024-01-19] MEDS ORDERED: IODIXANOL 150 ML IV ONE (06:31)
[2024-01-19] MEDS ORDERED: IV NS 0.9% 500 ML IV ONE (06:31)
[2024-01-19] MEDS ORDERED: IV SET PRIMARY PUMP SET 1 EA INFUS.SET MC ONE (06:31)
[2024-01-19 06:41] LABS: BASOPHILS # (AUTO) 0.1 K/uL (0.0-0.2); BASOPHILS % (AUTO) 0.9 % (0.0-2.0); EOSINOPHILS # (AUTO) 0.1 K/uL (0.0-0.7); EOSINOPHILS % (AUTO) 1.3 % (0.0-6.0); HEMATOCRIT 41 % (39-51); HEMOGLOBIN 13.2 g/dL (13.5-17.5); LYMPHOCYTES # (AUTO) 1.9 K/uL (0.8-4.8); LYMPHOCYTES % (AUTO) 29.7 % (20.0-44.0); MEAN CORPUSCULAR HEMOGLOBIN 25 PG (26.0-33.0); MEAN CORPUSCULAR HGB CONC 32 g/dl (31.0-36.0); MEAN CORPUSCULAR VOLUME 77 fL (80-96); MONOCYTES # (AUTO) 0.6 K/uL (0.1-1.30); MONOCYTES % (AUTO) 10.1 % (2.0-12.0); NEUTROPHILS # (AUTO) 3.6 K/uL (1.8-8.9); PLATELET COUNT (AUTO) 311 K/uL (150-450); RED BLOOD CELL COUNT(AUTO) 5.34 MIL/uL (4.5-6.0); RED CELL DISTRIBUTION WIDTH 21.7 % (11.5-15.0); WHITE BLOOD COUNT (AUTO) 6.3 K/uL (4.3-11.0)
[2024-01-19 07:29] LABS: INR 1.45 (0.91-1.10); PARTIAL THROMBOPLASTIN TIME 34.5 SEC (24.3-34.3)
[2024-01-19] MEDS ORDERED: NITROGLYCERIN IN 5 % DEXTROSE 250 ML IV ONE (07:30)
[2024-01-19 07:31] LABS: CALCIUM, SERUM 8.3 mg/dL (8.5-10.1); CREATININE 1.2 mg/dL (0.6-1.3); POTASSIUM 3.9 mmol/L (3.5-5.1)
[2024-01-19 07:37] LABS: ALBUMIN 1.7 g/dL (3.4-5.0); BILIRUBIN,TOTAL 2.4 mg/dL (0.2-1.0); MAGNESIUM 2.2 mg/dL (1.8-2.4); PHOSPHORUS 3.5 mg/dL (2.5-4.9); TOTAL PROTEIN, SERUM 6.2 g/dL (6.4-8.2)
[2024-01-19] MEDS ORDERED: MIDAZOLAM HCL 2 MG/2ML VIAL ONE (07:43)
[2024-01-19] MEDS ORDERED: FENTANYL PF 100MCG/2ML AMPUL ONE (07:43)
[2024-01-19 08:36] VITALS: BP 109/88; TEMP 97.7; O2SAT 96
[2024-01-19] MEDS: ONDANSETRON HCL/PF 4 MG/2 ML VIAL IVP PRN (16:47)
[2024-01-19 16:55] VITALS: BP 118/91; TEMP 98; O2SAT 97
[2024-01-19 20:00] VITALS: BP 110/92; TEMP 97.9; O2SAT 100
[2024-01-20] VITALS: BP 112/86; TEMP 97.7; O2SAT 97
[2024-01-20 04:00] VITALS: BP 112/86; TEMP 97.7; O2SAT 97
[2024-01-20 05:25] VITALS: O2SAT 100
[2024-01-20 08:00] VITALS: BP 102/86; TEMP 97.9; O2SAT 100
[2024-01-20] MEDS ORDERED: DoBUTamine 500 MG/250 ML PIGGYBACK IV ONE (08:00)
[2024-01-20] MEDS: DOBUTamine 500 MG in IV D5W 210 ML IV PRN (10:46)
[2024-01-20 20:00] VITALS: BP 106/83; TEMP 97.2; O2SAT 99
[2024-01-21] VITALS (7 sets, daily range): BP systolic 107–114; BP diastolic 81–95; TEMP 96.2–98.2; O2SAT 97–100
[2024-01-21 08:37] LABS: CALCIUM, SERUM 7.5 mg/dL (8.5-10.1); MAGNESIUM 2.1 mg/dL (1.8-2.4); PHOSPHORUS 2.7 mg/dL (2.5-4.9)
[2024-01-21 09:16] LABS: THYROID STIMULATING HORMONE 6.6 uIU/mL (0.358-3.74); URIC ACID 9.9 mg/dL (2.6-7.2)
[2024-01-21] MEDS: FUROSEMIDE 100 MG/10 ML VIAL IV SCH (09:31)
[2024-01-21] MEDS: AMIODARONE HCL 200 MG TABLET PO SCH ×2 (13:26→21:42)
[2024-01-21] MEDS ORDERED: ACETAMINOPHEN 325 MG TABLET PO PRN (20:30)
[2024-01-22] VITALS: BP 110/81; TEMP 99.1; O2SAT 100
[2024-01-22 04:00] VITALS: BP 99/73; TEMP 98.4; O2SAT 100
[2024-01-22 05:23] VITALS: BP 99/73
== END 2024-01-22 06:20 | disposition left against medical advice (07) | DRG 192 ==
LOC: ER 05:37 → TELE 11:07 → TELE1 01-20 09:42 → TELE-TD 01-20 09:53
PROVIDERS: ADMIT Student in an Organized Health Care Education/Training Program; ATTEND Internal Medicine
PROC: 4A023N7 Measurement of Cardiac Sampling and Pressure, Left Heart, Percutaneous Approach (ICD-10-PCS; principal; 2024-01-19)
PROC: B211YZZ Fluoroscopy of Multiple Coronary Arteries using Other Contrast (ICD-10-PCS; 2024-01-19)
PROC: 05HB33Z Insertion of Infusion Device into Right Basilic Vein, Percutaneous Approach (ICD-10-PCS; 2024-01-20)
PROC: B54MZZA Ultrasonography of Right Upper Extremity Veins, Guidance (ICD-10-PCS; 2024-01-20)
DX: I11.0 Hypertensive heart disease with heart failure (principal); I21.4 Non-ST elevation (NSTEMI) myocardial infarction; E43 Unspecified severe protein-calorie malnutrition; I42.9 Cardiomyopathy, unspecified; I27.29 Other secondary pulmonary hypertension; L03.115 Cellulitis of right lower limb; E87.1 Hypo-osmolality and hyponatremia; E86.0 Dehydration; N17.9 Acute kidney failure, unspecified; K70.30 Alcoholic cirrhosis of liver without ascites; I50.23 Acute on chronic systolic (congestive) heart failure; F10.10 Alcohol abuse, uncomplicated; Y90.9 Presence of alcohol in blood, level not specified; E66.01 Morbid (severe) obesity due to excess calories; Z87.891 Personal history of nicotine dependence; R74.01 Elevation of levels of liver transaminase levels; Z79.82 Long term (current) use of aspirin; K42.9 Umbilical hernia without obstruction or gangrene; Z68.36 Body mass index [BMI] 36.0-36.9, adult; E11.9 Type 2 diabetes mellitus without complications; Z53.29 Procedure and treatment not carried out because of patient's decision for other reasons; Z91.199 Patient's noncompliance with other medical treatment and regimen due to unspecified reason; I08.1 Rheumatic disorders of both mitral and tricuspid valves
CPT/HCPCS: 36415; 71045-TC; 76700-TC; 80048-TC; 80053-TC; 80061-TC; 80076-TC; 82570-TC; 82962-TC; 83735-TC; 83880; 83935-TC; 84100-TC; 84300-TC; 84439-TC; 84443-TC; 84484-TC; 84550-TC; 85025-TC; 85610-TC; 85730-TC; 93307-TC; 93970-TC; 94760-TC; 94799-TC; A4223; G0378; G0500; J0696; J1250; J1644; J1650; J1815; J1940; J2250; J2405; J3010; J3490; J7040; J7050; J7060; Q9967